=== PATIENT | female | born 1990 | race African-American/Black ===

== ENCOUNTER 2016-06-21 15:36 | Emergency (ER) | payer SELFPAY ==
[~2016-06-21] VITALS: Ht 165.1 cm; Wt 95.0 kg
[~2016-06-21 15:36] MED LIST: POLY10O EACH EYE
[2016-06-21 15:38] VITALS: BP 137/95; PULSE 85; RESP 14; TEMP 98.2; O2SAT 99
[2016-06-21] MEDS ORDERED: OLOP1DRO2 EACH EYE (16:37)
--- NOTE | 2016-06-21 16:37 | PD ---
HPI Chief Complaint: Eye Problems/Injury Time Seen by Provider: 16:31 Travel History International Travel<30 days: No Contact w/Intl Traveler<30days: No Traveled to known affect area: No History of Present Illness HPI Patient is a 26-year-old female who presented to the emergency for reevaluation of itchy watery eyes. Patient was seen and evaluated in the emergency department on 06/07/16 with the same complaint. She states at that time her eyes were red, and swollen. She reports significant improvement in her symptoms but states that her eye still felt itchy. She denies limits anything is in her eyes, she denies any visual changes but states that she is supposed to be wearing reading glasses. She further denies any headaches, neck pain, drainage. PFSH Past Medical History Medical History: Denies Significant Hx Immunizations Current: Yes LMP: 06/2016 Social History Alcohol Use: No Tobacco Use: No Substance Use: No Allergies-Medications (Allergen,Severity, Reaction): Coded Allergies: No Known Allergies (Unverified , 06/21/16) Reported Meds & Prescriptions Reported Meds & Active Scripts Active Polytrim Opth Drops (Polymyxin/Trimethoprim Sulfate) 10,000-0.1 Unit/Ml-% Soln 1 Drop EACH EYE 4-6HR 7 Days Review of Systems Except as stated in HPI: all other systems reviewed are Neg Eyes: Positive: Tearing, Other (itchy eyes) Physical Exam Narrative GENERAL: Well-nourished, well-developed patient. SKIN: Warm and dry. HEAD: Normocephalic. EYES: No scleral icterus. No injection or drainage. Extraocular movements are intact. NECK: Supple, trachea midline. No JVD or lymphadenopathy. CARDIOVASCULAR: Regular rate and rhythm without murmurs, gallops, or rubs. RESPIRATORY: Breath sounds equal bilaterally. No accessory muscle use. GASTROINTESTINAL: Abdomen soft, non-tender, nondistended. MUSCULOSKELETAL: No cyanosis, or edema. BACK: Nontender without obvious deformity. No CVA tenderness. Data Data Last Documented VS Vital Signs Date Time Temp Pulse Resp B/P Pulse Ox O2 Delivery O2 Flow Rate FiO2 06/21/16 15:38 98.2 85 14 137/95 99 Room Air MDM Medical Decision Making Medical Screen Exam Complete: Yes Emergency Medical Condition: Yes Interpretation(s) Vital Signs Date Time Temp Pulse Resp B/P Pulse Ox O2 Delivery O2 Flow Rate FiO2 06/21/16 15:38 98.2 85 14 137/95 99 Room Air Differential Diagnosis Bacterial conjunctivitis viral conjunctivitis versus episcleritis versus iritis versus allergic conjunctivitis Narrative Course Patient is a 26-year-old female who presented to emergency department for reevaluation of itchy watery eyes. Patient does report improvement in her symptoms from the last evaluation she had for the same complaint. She states at that time her eyes were red, swollen shut. Patient's vision is 20/30 bilaterally. Patient is also stating that she cannot return to work until she has a note that clears her. Patient will be provided with a prescription for eyedrops to treat allergic conjunctivitis. She was encouraged to follow-up with an base loader. She verbalizes understanding of instructions for discharge. Patient stable for discharge. 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 At that time she was advised to stay out of work until her symptoms resolved. Patient is medically cleared at this time to return to work. Additional Instructions: Follow-up with an base loader Use medications as directed Return to emergency department immediately for any new or worsening symptoms Med/Other Pt SpecificInfo: Prescription(s) given Scripts Olopatadine Opth Drops 0.1 % Drops1 Drop EACH EYE BID #1 BOTTLE Ref 0 Prov:Ingrid Luevano 06/21/16 Disposition: 01 DISCHARGE HOME Condition: Stable Ingrid Luevano Jun 21, 2016 16:37
== END 2016-06-21 16:54 | disposition home or self-care (01) ==
LOC: NEPB 15:36
DX: H10.13 Acute atopic conjunctivitis, bilateral (principal)
CPT/HCPCS: 99283

== ENCOUNTER 2016-12-08 19:37 | Emergency (ER) | payer SELFPAY ==
[~2016-12-08] VITALS: Ht 165.1 cm; Wt 90.0 kg
[~2016-12-08 19:37] MED LIST changes: +OLOP1DRO2 EACH EYE
[2016-12-08 19:41] VITALS: BP 125/82; PULSE 100; RESP 18; TEMP 97.6; O2SAT 99
[2016-12-08] MEDS ORDERED: ONDANSETRON HCL 4 MG/2 ML VIAL IV ONE (20:00)
[2016-12-08] MEDS ORDERED: SODIUM CHLOR 0.9% 1000 ML INJ 1,000 ML IV ONE (20:00)
--- NOTE | 2016-12-08 20:15 | PD ---
HPI Chief Complaint: GI Complaint Time Seen by Provider: 19:50 Travel History International Travel<30 days: No Contact w/Intl Traveler<30days: No Traveled to known affect area: No History of Present Illness HPI The patient was seen and examined in the presence of the nurse. This patient reports that she was at work and developed abruptly some pain in her chest and lower abdomen. Duration 1 hour. Severity is moderate. She had nausea. Her boss called 911 and have her evaluated here. She has no appendix or gallbladder. No alleviating factors. No vaginal discharge or bleeding. PFSH Past Medical History Immunizations Current: Yes ?: Not LMP: 12/06/16 Past Surgical History Appendectomy: Yes (2003) Cholecystectomy: Yes (2005) Social History Alcohol Use: No Tobacco Use: No Substance Use: No Allergies-Medications (Allergen,Severity, Reaction): Coded Allergies: No Known Allergies (Unverified , 12/08/16) Reported Meds & Prescriptions Reported Meds & Active Scripts Active Review of Systems General / Constitutional: No: Fever Eyes: No: Visual changes HENT: No: Headaches Cardiovascular: Positive: Chest Pain or Discomfort Respiratory: No: Shortness of Breath Gastrointestinal: Positive: Nausea, Abdominal Pain Genitourinary: Positive: Pelvic Pain, No: Dysuria Musculoskeletal: No: Pain Skin: No Rash Neurologic: No: Weakness Psychiatric: No: Depression Endocrine: No: Polydipsia Hematologic/Lymphatic: No: Easy Bruising Physical Exam Narrative GENERAL: Well-nourished, well-developed patient in no apparent distress. SKIN: Focused skin assessment reveals no rash and nodules. Skin is Warm and dry. HEAD: Atraumatic. Normocephalic. EYES: Pupils equal and round. No scleral icterus. No injection or drainage. ENT: No nasal bleeding or discharge. Mucous membranes pink and moist. NECK: Trachea midline. No JVD. CARDIOVASCULAR: Regular rate and rhythm. No murmur appreciated. RESPIRATORY: No accessory muscle use. Clear to auscultation. Breath sounds equal bilaterally. GASTROINTESTINAL: Abdomen soft, has left lower quadrant tenderness without rebound or guarding , nondistended. Hepatic and splenic margins not palpable. MUSCULOSKELETAL: No obvious deformities. No clubbing. No cyanosis. No edema. Has prominent sternal tenderness NEUROLOGICAL: Awake and alert. No obvious cranial nerve deficits. Motor grossly within normal limits. Normal speech. PSYCHIATRIC: Appropriate mood and affect; insight and judgment normal. Pelvic: No blood or discharge in the vault. No cervical motion tenderness. No adnexal mass. No uterine tenderness Data Data Last Documented VS Vital Signs Date Time Temp Pulse Resp B/P Pulse Ox O2 Delivery O2 Flow Rate FiO2 12/08/16 19:41 97.6 100 18 125/82 99 Orders Iv Access Insert/Monitor (12/08/16 19:58) Complete Blood Count With Diff (12/08/16 19:58) Basic Metabolic Panel (Bmp) (12/08/16 19:58) Ed Urine Pregnancytest Poc (12/08/16 19:58) Ondansetron Inj (Zofran Inj) (12/08/16 20:00) Sodium Chlor 0.9% 1000 Ml Inj (Ns 1000 M (12/08/16 20:00) Labs Laboratory Tests Test 12/08/16 20:08 White Blood Count 8.4 TH/MM3 Red Blood Count 4.55 MIL/MM3 Hemoglobin 12.5 GM/DL Hematocrit 37.3 % Mean Corpuscular Volume 81.9 FL Mean Corpuscular Hemoglobin 27.5 PG Mean Corpuscular Hemoglobin 33.6 % Concent Red Cell Distribution Width 14.9 % Platelet Count 318 TH/MM3 Mean Platelet Volume 8.6 FL Neutrophils (%) (Auto) 62.2 % Lymphocytes (%) (Auto) 28.5 % Monocytes (%) (Auto) 6.7 % Eosinophils (%) (Auto) 2.2 % Basophils (%) (Auto) 0.4 % Neutrophils # (Auto) 5.2 TH/MM3 Lymphocytes # (Auto) 2.4 TH/MM3 Monocytes # (Auto) 0.6 TH/MM3 Eosinophils # (Auto) 0.2 TH/MM3 Basophils # (Auto) 0.0 TH/MM3 CBC Comment DIFF FINAL Differential Comment Sodium Level 139 MEQ/L Potassium Level 3.4 MEQ/L Chloride Level 104 MEQ/L Carbon Dioxide Level 26.2 MEQ/L Anion Gap 9 MEQ/L Blood Urea Nitrogen 8 MG/DL Creatinine 0.83 MG/DL Estimat Glomerular Filtration 99 ML/MIN Rate Random Glucose 93 MG/DL Calcium Level 8.8 MG/DL MDM Medical Decision Making Medical Screen Exam Complete: Yes Emergency Medical Condition: Yes Medical Record Reviewed: Yes Differential Diagnosis Ovarian cyst, ectopic , PID Narrative Course I have reviewed the patient's electronic medical record. IV placed CBC is normal Metabolic profile is normal Urine is negative I gave her IV Zofran and 1 L normal saline IV On recheck she is looking well and comfortable. She declines pain or nausea medicine. Stable for outpatient follow-up. She has nonspecific pelvic pain. I don't have any clinical suspicion of ovarian torsion. Diagnosis Primary Impression: Pelvic pain in female Additional Impression: Musculoskeletal chest pain Additional Instructions: The patient was advised to follow up with their physician and return if they worsen. Med/Other Pt SpecificInfo: Other Disposition: 01 DISCHARGE HOME Condition: Stable Royer Shaffer MD Dec 08, 2016 20:15
[2016-12-08 20:20] LABS: AUTOMATED NEUTROPHIL # 5.2 TH/MM3 (1.8-7.7); BASOPHIL % 0.4 % (0.0-2.0); EOSINOPHIL # 0.2 TH/MM3 (0-0.4); EOSINOPHIL % 2.2 % (0.0-4.0); HEMATOCRIT 37.3 % (35.0-46.0); HEMO FLAGS DIFF FINAL; LYMPH % 28.5 % (9.0-44.0); LYMPHOCYTE # 2.4 TH/MM3 (1.0-4.8); MEAN CELL VOLUME 81.9 FL (80.0-100.0); MEAN CORPUSCULAR HEMOGLOBIN 27.5 PG (27.0-34.0); MEAN CORPUSCULAR HGB CONC 33.6 % (32.0-36.0); MONO % 6.7 % (0.0-8.0); NEUT % 62.2 % (16.0-70.0); PLATELET COUNT 318 TH/MM3 (150-450); RED BLOOD COUNT 4.55 MIL/MM3 (4.00-5.30); RED CELL DISTRIBUTION WIDTH 14.9 % (11.6-17.2); WHITE BLOOD COUNT 8.4 TH/MM3 (4.0-11.0)
[2016-12-08 20:41] LABS: BICARBONATE 26.2 MEQ/L (21.0-32.0); POTASSIUM 3.4 MEQ/L (3.5-5.1)
== END 2016-12-08 21:43 | disposition home or self-care (01) ==
LOC: NEPC 19:37
DX: R10.2 Pelvic and perineal pain (principal); R07.89 Other chest pain
CPT/HCPCS: 80048; 84703; 85025; 96361; 96374; 99284; J2405; J7030

== ENCOUNTER 2017-05-25 09:59 | Emergency (ER) | payer MEDICAID ==
[2017-05-25 10:02] VITALS: BP 127/82; PULSE 72; RESP 16; TEMP 98.1; O2SAT 100
--- NOTE | 2017-05-25 10:43 | PD ---
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 She has an IUD in place for the past 8 years. Reports missing her period in April. Her last menstrual period was April 07. Reports vomiting 2 days ago without continued vomiting. Reports diarrhea. Denies fevers. Reports vaginal discharge and odor times one month. Denies vaginal itching or lesions. Denies dysuria. Reports urinary frequency. Unknown exposure to STD/STD. Rates pain 01/26. Describes it as aching and shooting. Has not followed up for this complaint since she was seen here last. Has not taken any medications or drainage treatments to alleviate her symptoms. Symptoms are mild in severity. Does not have an established primary care provider. Denies significant past medical history. History of appendectomy and cholecystectomy. No known allergies. No other modifying factors or associated signs and symptoms. PFSH Past Medical History Immunizations Current: Yes ?: Not Past Surgical History Appendectomy: Yes (2003) Cholecystectomy: Yes (2005) Social History Alcohol Use: No Tobacco Use: No Substance Use: No Allergies-Medications (Allergen,Severity, Reaction): Coded Allergies: No Known Allergies (Unverified Adverse Reaction, Unknown, 05/25/17) Reported Meds & Prescriptions Reported Meds & Active Scripts Active Keflex (Cephalexin) 500 Mg Cap 500 Mg PO Q12H 7 Days Review of Systems Except as stated in HPI: all other systems reviewed are Neg Physical Exam Narrative GENERAL: Well-nourished, well-developed black female patient, in no acute distress; afebrile, nontoxic-appearing SKIN: Warm and dry. HEAD: Atraumatic. Normocephalic. EYES: Pupils equal and round. No scleral icterus. No injection or drainage. ENT: Mucous membranes pink and moist. NECK: Trachea midline. No lymphadenopathy. CARDIOVASCULAR: Regular rate and rhythm. No murmur appreciated. RESPIRATORY: No accessory muscle use. Clear to auscultation. Breath sounds equal bilaterally. GASTROINTESTINAL: Abdomen soft, non-tender, nondistended. Bilateral pelvic region tender to palpation. Hepatic and splenic margins not palpable. PELVIC: Exam done in the presence of a nurse. Speculum exam reveals edematous and erythematous cervix with light brown, mucopurulent, foul-smelling discharge. IUD string noted. Bimanual exam reveals no palpable masses or adnexa tenderness, no uterine tenderness. Positive cervical motion tenderness. BACK: No CVA tenderness. MUSCULOSKELETAL: No obvious deformities. No clubbing. No cyanosis. No edema. NEUROLOGICAL: Awake and alert. No obvious cranial nerve deficits. Motor grossly within normal limits. Normal speech. PSYCHIATRIC: Appropriate mood and affect; insight and judgment normal. Data Data Last Documented VS Vital Signs Date Time Temp Pulse Resp B/P (MAP) Pulse Ox O2 Delivery O2 Flow Rate FiO2 05/25/17 10:02 98.1 72 16 127/82 (97) 100 Room Air Orders Orders Urinalysis - C+S If Indicated (05/25/17 10:20) Ed Urine Pregnancytest Poc (05/25/17 10:20) Gc And Chlamydia Pcr (05/25/17 10:32) Wet Prep Profile (05/25/17 10:32) Ketorolac Inj (Toradol Inj) (05/25/17 11:00) Azithromycin (Zithromax) (05/25/17 11:00) Ondansetron Odt (Zofran Odt) (05/25/17 11:00) Ceftriaxone Inj (Rocephin Inj) (05/25/17 11:00) Lidocaine 1% Inj (50 Ml) (Xylocaine 1% I (05/25/17 11:00) Lidocaine Pf 1% Inj (Xylocaine-Mpf 1% In (05/25/17 11:11) Urine Culture (05/25/17 10:15) Metronidazole (Flagyl) (05/25/17 12:00) Ed Discharge Order (05/25/17 12:00) Labs Laboratory Tests Test 05/25/17 10:15 05/25/17 10:59 Urine Color YELLOW Urine Turbidity HAZY Urine pH 6.0 Urine Specific [place] 1.024 Urine Protein TRACE mg/dL Urine Glucose (UA) NEG mg/dL Urine Ketones NEG mg/dL Urine Occult Blood LARGE Urine Nitrite NEG Urine Bilirubin NEG Urine Urobilinogen LESS THAN 2.0 MG/DL Urine Leukocyte Esterase LARGE Urine RBC 6 /hpf Urine WBC 25 /hpf Urine WBC Clumps OCC Urine Squamous Epithelial Cells 13 /hpf Urine Bacteria OCC /hpf Urine Mucus FEW /lpf Urine Trichomonas FEW Microscopic Urinalysis Comment CULTURE INDICATED Clue Cells (Wet Prep) NONE SEEN Vaginal Trichomonas (Wet Prep) PRESENT Vaginal Yeast (Wet Prep) NONE SEEN MDM Medical Decision Making Medical Screen Exam Complete: Yes Emergency Medical Condition: Yes Medical Record Reviewed: Yes Differential Diagnosis Chlamydia, gonorrhea, PID, gastroenteritis, UTI, pelvic pain Narrative Course 27-year-old female with complaint of pelvic pain and foul smelling vaginal discharge. Pelvic exam with edematous, erythematous cervix and mucopurulent foul-smelling discharge. Patient empirically treated with azithromycin and Rocephin. Wet prep , chlamydia, gonorrhea, urinalysis, urine ordered. UPT negative. 1200: Vaginal yeast and bacterial vaginosis negative. Trichomonas positive. Flagyl administered in the ER. Urinalysis with signs of infection. Keflex prescribed for home. Chlamydia and gonorrhea pending. Instructed patient to follow up with replaced by [facility] now, pharmacy assistant, health department. Instructed patient to follow up with primary care provider. Patient verbalizes understanding and agreement with treatment plan. Patient is medically cleared and stable for discharge. Discussed reasons to return to the emergency department. Patient agrees with treatment plan. The patients vital signs are stable and the patient is stable for outpatient follow-up and treatment. Patient discharged home, stable and in no acute distress. Diagnosis Primary Impression: Trichomonas vaginalis infection Additional Impression: UTI (urinary tract infection) Qualified Codes: N39.0 - Urinary tract infection, site not specified Referrals: [facility] Clinical Informatics Physician [facility] Primary Care Physician Patient Instructions: Cervicitis (ED), Chlamydia (ED), General Instructions, Gonorrhea (ED), Sexually Transmitted Diseases (ED), Trichomoniasis (ED) Additional Instructions: Avoid sexual activity until symptoms subside and then 1 week after; no sex for at least 14-21 days No sexual activity with partner/partners until they have been treated and their symptoms subside and then wait one more week; no sex for at least 14-21 days Inform all sexual partners within the past 3-6 months that they need to be evaluated and treated Use condoms every time you have sex Follow-up with primary care provider Follow up with health department Follow-up with pharmacy assistant Return to the emergency department immediately with worsening of symptoms Med/Other Pt SpecificInfo: Prescription(s) given Scripts Cephalexin (Keflex) 500 Mg Cap 500 MG PO Q12H for Infection for 7 Days, #14 CAP 0 Refills Prov: Nabila Harden 05/25/17 Disposition: 01 DISCHARGE HOME Condition: Stable Nabila Harden May 25, 2017 10:43
[2017-05-25] MEDS ORDERED: AZITHROMYCIN 250 MG TAB PO ONE (11:00)
[2017-05-25] MEDS ORDERED: KETOROLAC TROMETHAMINE 30 MG/ML (IVP) VIAL IV PUSH ONE (11:00)
[2017-05-25] MEDS ORDERED: ONDANSETRON ODT 4 MG TAB PO ONE (11:00)
[2017-05-25] MEDS ORDERED: cefTRIAXone 250 MG VIAL IM ONE (11:00)
[2017-05-25] MEDS ORDERED: LIDOCAINE HCL 1% 50 ML VIAL IM ONE (11:00)
[2017-05-25] MEDS ORDERED: LIDOCAINE HCL 1% PF 30 ML VIAL ONE (11:11)
[2017-05-25 11:35] LABS: BACTERIA, URINE OCC /hpf; BLOOD, URINE LARGE (NEG); COMMENT (UR) CULTURE INDICATED; CULTURE IF INDICATED CULTURE INDICATED; GLUCOSE,URINE NEG (NEG); KETONE, URINE NEG (NEG); MUCUS URINE FEW /lpf (OCC); NITRITE,URINE NEG (NEG); SQUAMOUS EPITHELIAL CELL URINE 13 /hpf (0-5); URINE COLOR YELLOW (YELLW/STRAW)
[2017-05-25] MEDS ORDERED: CEPH-460 PO (11:59)
[2017-05-25] MEDS ORDERED: metroNIDAZOLE 500 MG TAB PO ONE (12:00)
[2017-05-25 14:19] LABS: CHLAMYDIA PCR NOT DETECTED (NOT DETECT); NEISSERIA PCR NOT DETECTED (NOT DETECT)
== END 2017-05-25 12:38 | disposition home or self-care (01) ==
LOC: NEPD 09:59
DX: A59.01 Trichomonal vulvovaginitis (principal); N39.0 Urinary tract infection, site not specified; B96.1 Klebsiella pneumoniae [K. pneumoniae] as the cause of diseases classified elsewhere
CPT/HCPCS: 81001; 84703; 87077; 87086; 87186; 87210; 87491; 87591; 96372; 96374; 99284; J0696; J1885

== ENCOUNTER 2017-09-29 17:32 | Emergency (ER) | payer MEDICAID ==
[~2017-09-29] VITALS: Ht 165.1 cm; Wt 90.0 kg
[~2017-09-29 17:32] MED LIST changes: +CEPH-460 PO; -OLOP1DRO2 EACH EYE; -POLY10O EACH EYE
[2017-09-29 17:39] VITALS: BP 154/74; PULSE 77; RESP 18; TEMP 98; O2SAT 99
[2017-09-29 18:34] LABS: BILIRUBIN, URINE NEG (NEG); BLOOD, URINE LARGE (NEG); GLUCOSE,URINE NEG (NEG); KETONE, URINE NEG (NEG); MUCUS URINE FEW /lpf (OCC); NITRITE,URINE NEG (NEG); PH, URINE 5.5 (5.0-8.5); SQUAMOUS EPITHELIAL CELL URINE 9 /hpf (0-5); URINE COLOR YELLOW (YELLW/STRAW); URINE LEUKOCYTE ESTERASE LARGE (NEG)
[2017-09-29] MEDS ORDERED: CEPH-460 PO (21:48)
--- NOTE | 2017-09-29 21:52 | PD ---
HPI Chief Complaint: Complaint Time Seen by Provider: 21:43 Travel History International Travel<30 days: No Contact w/Intl Traveler<30days: No Traveled to known affect area: No History of Present Illness HPI 27-year-old black female presents to emergency department with a 24-hour history of increased urinary frequency, dysuria and some slight hematuria. She states that she has some lower pelvic pressure and discomfort worse when she stands up. She denies any vaginal discharge or abnormal bleeding. She is sexually active. She does not have a regular partner. She reports having an IUD. She denies any fever or chills. No nausea vomiting. No back pain. No abdominal pain. No rashes or lesions. PFSH Past Medical History Medical History: Denies Significant Hx Immunizations Current: Yes Tetanus Vaccination: < 5 Years ?: Not LMP: SEPTEMBER 2017 Past Surgical History Appendectomy: Yes (2003) Cholecystectomy: Yes (2005) Social History Alcohol Use: No Tobacco Use: No Substance Use: No Allergies-Medications (Allergen,Severity, Reaction): Coded Allergies: No Known Allergies (Unverified Adverse Reaction, Unknown, 05/25/17) Reported Meds & Prescriptions Reported Meds & Active Scripts Active Keflex (Cephalexin) 500 Mg Cap 500 Mg PO Q12H 7 Days Review of Systems Except as stated in HPI: all other systems reviewed are Neg Physical Exam Narrative GENERAL: Well-developed, well-nourished in no acute distress. Nontoxic appearing. HEAD: Normocephalic, atraumatic. EYES: Pupils equal round and reactive. Extraocular motions intact. No scleral icterus. No injection or drainage. ENT: TMs clear without erythema. The external auditory canals clear. Nose: clear . Posterior pharynx is pink and moist. No tonsillar edema or exudate. Uvula midline. Airway patent. NECK: Trachea midline.Supple, nontender, moves head freely. No central bony tenderness or spasm. CARDIOVASCULAR: Regular rate and rhythm without murmurs, gallops, or rubs. RESPIRATORY: Clear to auscultation. Breath sounds equal bilaterally. No wheezes , rales, or rhonchi. GASTROINTESTINAL: Abdomen soft, non-tender, obese. No hepato-splenomegaly, or palpable masses. No guarding. EXTREMITIES: No clubbing, cyanosis, or edema. No joint tenderness, effusion, or edema noted. BACK: Nontender without deformity or crepitance. No flank tenderness. Data Data Last Documented VS Vital Signs Date Time Temp Pulse Resp B/P (MAP) Pulse Ox O2 Delivery O2 Flow Rate FiO2 09/29/17 17:39 98.0 77 18 154/74 (100) 99 Orders Orders Urinalysis - C+S If Indicated (09/29/17 17:41) Ed Urine Pregnancytest Poc (09/29/17 17:41) Urine Culture (09/29/17 17:45) Ceftriaxone Inj (Rocephin Inj) (09/29/17 22:00) Azithromycin Powd Pack (Zithromax Powd P (09/29/17 22:00) Metronidazole (Flagyl) (09/29/17 22:00) Ed Discharge Order (09/29/17 21:48) Labs Laboratory Tests Test 09/29/17 17:45 Urine Color YELLOW Urine Turbidity HAZY Urine pH 5.5 Urine Specific [place] 1.026 Urine Protein TRACE mg/dL Urine Glucose (UA) NEG mg/dL Urine Ketones NEG mg/dL Urine Occult Blood LARGE Urine Nitrite NEG Urine Bilirubin NEG Urine Urobilinogen LESS THAN 2.0 MG/DL Urine Leukocyte Esterase LARGE Urine RBC 69 /hpf Urine WBC 23 /hpf Urine Squamous Epithelial Cells 9 /hpf Urine Mucus FEW /lpf Microscopic Urinalysis Comment CULTURE INDICATED MDM Medical Decision Making Medical Screen Exam Complete: Yes Emergency Medical Condition: Yes Medical Record Reviewed: Yes Differential Diagnosis Differential diagnoses: Appendicitis, colitis, UTI, pyelonephritis, vaginitis, STD Narrative Course The patient's urine is contaminated appears to have a urinary tract infection. Review the patient's medical record indicates she had a history of any STD and in the recent past. Patient states that she is not having a vaginal discharge. Does not use any barrier method. The patient will be treated for potential STD as well as a UTI. Patient is given Rocephin 250 mg IM, Zithromax 1 g by mouth, and Flagyl 2 g by mouth. This is UTI, pelvic pain Diagnosis Primary Impression: UTI Additional Impression: Pelvic pain in female Patient Instructions: General Instructions Additional Instructions: Rest. Increase fluids. Keflex.. Follow-up with a primary care doctor in one week. Return to the ER for any problems. Med/Other Pt SpecificInfo: Prescription(s) given Scripts Cephalexin (Keflex) 500 Mg Cap 500 MG PO Q12H for Infection for 7 Days, #14 CAP 0 Refills Prov: Ruben Sky MD 09/29/17 Disposition: 01 DISCHARGE HOME Condition: Stable Pa Gutierrez Sep 29, 2017 21:52
[2017-09-29] MEDS ORDERED: AZITHROMYCIN PWD FOR SUSP 1 GM PACKET PO ONE (22:00)
[2017-09-29] MEDS ORDERED: cefTRIAXone 250 MG VIAL IM ONE (22:00)
[2017-09-29] MEDS ORDERED: metroNIDAZOLE 500 MG TAB PO ONE (22:00)
[2017-09-29] MEDS ORDERED: AZITHROMYCIN 250 MG TAB PO ONE (22:30)
== END 2017-09-29 22:51 | disposition home or self-care (01) ==
LOC: NEPD 17:32
DX: N39.0 Urinary tract infection, site not specified (principal)
CPT/HCPCS: 81001; 84703; 87086; 96372; 99283; J0696

== ENCOUNTER 2017-10-22 13:17 | Emergency (ER) | payer OTHER, MEDICAID ==
[2017-10-22] MEDS: ORPHENADRINE INJ 60 MG/2 ML AMP IM (13:49)
[2017-10-22] MEDS: KETOROLAC TROMETHAMINE 60 MG/2 ML (IM) VIAL IM (13:50)
== END 2017-10-22 14:34 | disposition home or self-care (01) ==
LOC: NEPD 13:17
DX: S16.1XXA Strain of muscle, fascia and tendon at neck level, initial encounter (principal); V89.2XXA Person injured in unspecified motor-vehicle accident, traffic, initial encounter
CPT/HCPCS: 96372; 99283-25